=== PATIENT | male | born 1960 | race Caucasian/White ===

== ENCOUNTER 2017-03-28 03:57 | Emergency (ER) | payer OTHER ==
[~2017-03-28] VITALS: Ht 193 cm; Wt 140.6 kg
[~2017-03-28 03:57] MED LIST: AMLODIPINE BESY10 MG PO; ASPIRIN81 MG PO; ATORVASTATIN CA10 MG PO; DULOXETINE HCL60 MG PO; LISINOPRIL-HCT1 EACH PO; NORCO 5-325 TA1 EACH PO; PERCOCET 5-3251 EACH PO
[2017-03-28] MEDS ORDERED: PERCOCET 5-3251 EACH PO (06:33)
[2017-03-28] MEDS ORDERED: FLOMAX0.4 MG PO (06:33)
[2017-03-28] MEDS ORDERED: NAPROSYN500 MG PO (06:33)
== END 2017-03-28 07:09 | disposition home or self-care (01) ==
LOC: ED 03:57
DX: N20.2 Calculus of kidney with calculus of ureter (principal); N28.89 Other specified disorders of kidney and ureter; I10 Essential (primary) hypertension; E78.00 Pure hypercholesterolemia, unspecified; Z87.891 Personal history of nicotine dependence; Z79.899 Other long term (current) drug therapy; Z79.82 Long term (current) use of aspirin
CPT/HCPCS: 74176; 74177; 80053; 81001; 85025; 96374; 96375; 99284; J1885; J2405; Q9967

== ENCOUNTER 2017-04-16 05:40 | Day surgery (SDC) | payer OTHER ==
[~2017-04-16] VITALS: Ht 193 cm; Wt 145.2 kg
[~2017-04-16 05:40] MED LIST changes: +FLOMAX0.4 MG PO; +NAPROSYN500 MG PO
--- NOTE | 2017-04-16 08:44 | NUR ---
04/16/17 0844 Jessi Mclaughlin 0840 - PT ARRIVED TO PACU. AWAKE AND TALKING, MAINTAINING OWN AIRWAY. PT DENIES PAIN AND NAUSEA.
[2017-04-16] MEDS ORDERED: NORCO 7.5-3251 EACH PO (10:01)
[2017-04-16] MEDS ORDERED: BACTRIM DS TAB1 EACH PO (10:02)
--- NOTE | 2017-04-16 11:32 | NUR ---
UP TO BATHROOM WITH ONE PERSON ASSIST. VOIDED LG AMOUNT OF RED COLORED URINE. C/O R GROIN PAIN. CUSSING AND YELLING IN BATHROOM. BACK TO ROOM WITH 2 PERSON ASSIST. REPOSITIONED IN BED. CONTINUES TO C/O R GROIN PAIN 07/01 AND R FLANK PAIN /.
--- NOTE | 2017-04-16 15:38 | NUR ---
LE [address] SCAN. TO XRAY VIA STRETCHER. 1200 BACK IN DEPT. PAIN DOWN TO 11/29. SISTER AT BEDSIDE.
--- NOTE | 2017-04-16 15:39 | NUR ---
LE 1300 C/O INCREASED PAIN AND WANTING PAIN PILL BEFORE DISCHARGE. OXYCODONE 10MG PO GIVEN. 1330 PAIN BETTER PER PT. GETTING DRESSED. 1340 DC INSTRUCTIONS GIVEN TO PT/SISTER. LEFT VIA W/C. RX FOR ABX AND STOOL SOFTENER CALLED INTO [facility] PER PT REQUEST.
--- NOTE | 2017-04-17 14:29 | OR ---
[facility] [address], [place] [address] Signed DATE OF PROCEDURE: 04/16/17 PREOPERATIVE DIAGNOSES Severe onset of right-sided flank pain with no previous history of nephrolithiasis. Proximal right ureteral calculi x2, each measuring approximately 2-3 mm in size. Abnormal finding on recent CT scan of proximal right ureteral enlargement/filling defect. Approximately 1 cm solid right renal mass, suspicious for malignancy. POSTOPERATIVE DIAGNOSES Severe onset of right-sided flank pain with no previous history of nephrolithiasis. Proximal right ureteral calculi x2, each measuring approximately 2-3 mm in size. Abnormal finding on recent CT scan of proximal right ureteral enlargement/filling defect. Approximately 1 cm solid right renal mass, suspicious for malignancy. Hi story of right ureterolithiasis, status post successful trial of passage of both proximal right ureteral calculi. Residual right renal calculi. NAMES OF PROCEDURES Diagnostic cystoscopy with right retrograde pyelogram. Right diagnostic nephroureteroscopy with attempted extraction of right renal calculus. Right ureteral stent insertion. SURGEON: Carmencita Bañuelos MD. ANESTHESIA: General. ESTIMATED BLOOD LOSS: Minimal. COMPLICATIONS During attempted extraction of a 3-4 mm right renal calculus, visualization of the stone was lost during extraction, which resulted in a small perforation of the medial aspect of the proximal right ureter. This was discovered immediately on repeat right retrograde pyelogram. I was also able to visualize on ureteroscopy an area of periureteral fat, which was immediately diagnostic of a right ureteral perforation. At that time, I immediately aborted my attempts to extract the stone and instead found the uninvolved portion of the ureter and made my way cranially into the right renal pelvis where a Sensor wire was then placed successfully. Over the wire, I passed a right ureteral stent without difficulty. SPECIMENS: None. DRAINS Electronically Signed By: CARMENCITA BAÑULEOS MD 04/17/17 1429 PATIENT NAME: KAROL VALLECILLO OPERATIVE REPORT DATE OF : 62 PHYSICIAN: CARMENCITA BAÑUELOS MD REPORT #: [id number] REPORT IS CONFIDENTIAL AND NOT TO BE RELEASED WITHOUT AUTHORIZATION [facility] [address] [facility] [place] [address] Signed A 6 x variable length contour double-J ureteral stent was inserted in the right ureter under direct visualization without difficulty. OPERATIVE FINDINGS On cystoscopy, there was no evidence of any suspicious masses, lesions, or stones within the bladder. There was, however, evidence of diffuse grade 1-2 trabeculation of the bladder wall, which I believe is indicative of long-standing bladder outlet obstruction. Ureteroscopy revealed a moderately enlarged prostate with a relatively high bladder neck. There was no overt lateral lobe hypertrophy; however, I could appreciate a small median lobe. Right retrograde pyelogram revealed no evidence of any residual obstructing ureteral calculi within the right ureter. Right retrograde pyelogram did reveal a pocket of about 4-5 stones in the midpole of the right kidney, all measuring approximately a total of 1 cm in diameter. Right diagnostic ureteroscopy was performed and I did not visualize any ureteral calculi present within the ureter. I made my way into the kidney where nephroscopy was performed. Most of the kidney was free of stones except for a middle calyx, in which I noted approximately 4 stones measuring a total of 1 cm in diameter. I attempted to extract one of these stones with a Zero Tip basket on my way down from the kidney into the proximal ureter. I lost visualization due to older, more antiquated instrumentation. In that time, a small perforation was created in the medial aspect of the right ureter. This perforation was immediately discovered and any additional efforts to extract the stone were aborted. A 6 x variable length contour double-J ureteral stent was then inserted into the right ureter under direct visualization without difficulty. DESCRIPTION OF PROCEDURE After informed consent was obtained, the patient was taken back to the operating room. He was transferred from the [facility] to the operating room table where general anesthesia was induced. He was placed in the dorsal lithotomy position and his genitalia were prepped and draped in a standard sterile fashion. Using a 30-degree lens on a 23-Maori introducer, rigid cystoscope was inserted through the urethra in to his bladder under direct visualization. Panendoscopic views of the bladder were then obtained. Please see above findings. Attention was turned to the right ureteral orifice. A cone-tipped catheter was advanced to the level of the right ureteral orifice and a right retrograde pyelogram was performed, please see above findings. I then removed the cystoscope and advanced an extended length semi-rigid ureteroscope through the patient's urethra into his bladder without difficulty. I then advanced the scope i n to the right ureter and performed a right diagnostic ureteroscopy. Please see above findings. Once I was satisfied that there were not any stones present within the entire length of the ureter, I removed the rigid scope, leaving a Sensor wire behind within the right collecting system. Over the wire, I advanced a 13/15 ureteral access sheath into the right Electronically Signed By: CARMENCITA BAÑUELOS MD 04/17/17 1429 PATIENT NAME: KAROL VALLECILLO OPERATIVE REPORT DATE OF : 62 PHYSICIAN: CARMENCITA BAÑUELOS MD REPORT #: [id number] REPORT IS CONFIDENTIAL AND NOT TO BE RELEASED WITHOUT AUTHORIZATION [facility] [address], [place] [address] Signed collecting system under direct visualization without difficulty. I repeated a right retrograde pyelogram to confirm placement of the ureteral access sheath. I then advanced a flexible ureteroscope through the sheath and into the proximal right ureter and right kidney. A right diagnostic nephroscopy was then performed. Please see above findings. I located a small collection of stones in the mid pole of the right kidney. During my attempt to extract the 1st stone on my way out of the kidney and into the ureter, I lost visualization of this stone. I immediately stopped withdrawing the flexible ureteroscope; however, upon revisualization of the ureter, I noted a small perforation present on the medial aspect of the right ureter. This was noted via the presence of periureteral fat on ureteroscopy. I immediately aborted my stone extraction attempt and then focused on regaining access to the upper collecting system. I was able to successfully do so via ureteroscopy and made my way back up into the right kidney. I placed a Sensor wire into the right collecting system via the ureteroscope. The ureteroscope was then removed. Over the wire, a 6 x variable length contour double-J ureteral stent was inserted in the right collecting system under direct visualization without difficulty. Upon removal of the wire, an adequate proximal coil was seen within the right renal pelvis along with an adequate distal coil in the bladder. The patient's bladder was then drained and the cystoscope was removed. The procedure was then terminated. The patient tolerated the procedure well without any complications. He will now be transferred to the post anesthesia care unit in stable condition. DISPOSITION My plan is to discharge Mr. Vallecillo home later today in stable condition if he does not experience any severe right-sided flank pain or any evidence of significant urinoma. He will be discharged home today on Bactrim Double Strength for a total of 10 days along with Oxycodone 5, dispense #40, as needed for pain. He was given a higher amount of narcotics as he did experience some severe right-sided groin pain postoperatively. I obtained a noncontrast CT scan, which revealed the stone that I attempted to extract still present within the ureter and a double J ureteral stent in good position. There was a very small hematoma over the psoas muscle, which would explain the groin pain. There was no evidence of any significant fluid collection within the retroperitoneum. He was therefore deemed stable for discharge once his pain was under adequate control. He will be scheduled to return to clinic in approximately 3 weeks, at which time I will evaluate his urine as well as obtain a PSA and perform a digital rectal exam, given his strong family history of prostate cancer. In approximately 5-6 weeks, my plan is to take him back to the operating room where I will remove his stent and perform retrograde to ensure adequate healing of the ureter. I will then re-attempt stone extraction with hopefully with better instrumentation at that time. Electronically Signed By: CARMENCITA BAÑUELOS MD 04/17/17 1429 PATIENT NAME: KAROL VALLECILLO OPERATIVE REPORT DATE OF : 62 PHYSICIAN: CARMENCITA BAÑUELOS MD REPORT #: [id number] REPORT IS CONFIDENTIAL AND NOT TO BE RELEASED WITHOUT AUTHORIZATION [facility] [address] [place] [id number] Signed Carmencita Bañuelos MD AR/Modl /[id number] cc: Marck Kunh MD Electronically Signed By: CARMENCITA BAÑUELOS MD 04/17/17 1429 PATIENT NAME: KAROL VALLECILLO OPERATIVE REPORT DATE OF : 62 PHYSICIAN: CARMENCITA BAÑUELOS MD REPORT #: [id number] REPORT IS CONFIDENTIAL AND NOT TO BE RELEASED WITHOUT AUTHORIZATION
== END 2017-04-16 13:40 | disposition home or self-care (01) ==
LOC: DS 05:40 → OPS 05:40 → DS 06:45 → OPS 13:40
PROVIDERS: Urology
PROC: 0T768DZ Dilation of Right Ureter with Intraluminal Device, Via Natural or Artificial Opening Endoscopic (ICD-10-PCS; principal; 2017-04-16 06:45)
PROC: BT1DYZZ Fluoroscopy of Right Kidney, Ureter and Bladder using Other Contrast (ICD-10-PCS; 2017-04-16 06:45)
DX: N20.0 Calculus of kidney (principal); I10 Essential (primary) hypertension; E78.5 Hyperlipidemia, unspecified; Z79.82 Long term (current) use of aspirin; Z79.899 Other long term (current) drug therapy; Z98.890 Other specified postprocedural states; Z87.442 Personal history of urinary calculi
CPT/HCPCS: 00910; 74176; 74420; 74450; C2617; J0330; J0696; J1100; J1170; J1885; J2250; J2405; J2704; J3010; J7120; Q9967

== ENCOUNTER 2017-04-18 03:49 | Inpatient (IN) | payer OTHER ==
[~2017-04-18] VITALS: Ht 193 cm; Wt 141.8 kg
[~2017-04-18 03:49] MED LIST changes: +BACTRIM DS TAB1 EACH PO; +NORCO 7.5-3251 EACH PO
[2017-04-18] MEDS ORDERED: PERCOCET 5-3251 EACH PO (04:09)
[2017-04-18] MEDS ORDERED: OXYCODONE HCL5 MG PO (04:10)
[2017-04-18] MEDS ORDERED: BACTRIM DS TAB1 EACH PO (04:11)
--- NOTE | 2017-04-18 06:53 | NUR ---
56YR OLD MAN ADMITTED FROM ER VIA STRETCHER TO ROOM 114. PT IS ALERT, ORIENTED, ABLE TO STAND AND TRANSFER FROM STRETCHER TO BED WITH SBA. DENIES NAUSEA AT THIS TIME. RATES PAIN 4/10 AND COMFORTABLE AFTER RECIEVING PAIN MEDICATION IN ER. ORIENTED TO ROOM AND CALL LIGHT. DENEIS NEED TO VOID AND IMPORTANCE OF USING CALL LIGHT TO GET UP. ORDERS NOTED.
--- NOTE | 2017-04-18 07:13 | NUR ---
NS @ 125 INFUSING R HAND. PT IS SLEEPING SOUNDLY, O2 2 2L/NC SINCE RECIEVING PAIN MEDICATION. CALL LIGHT IN EASY REACH.
--- NOTE | 2017-04-18 07:30 | NUR ---
BEDSIDE REPORT RECEIVED FROM BIANKA FLORES. PT AWAKE AND ALERT IN BED, 2L O2 IN PLACE. PT STATING 1/10 PAIN AT THIS TIME. DENIES NAUSEA. PT ORDERING BREAKFAST. NO ADDITIONAL REQUESTS AT THIS TIME. CALL LIGHT IN REACH.
--- NOTE | 2017-04-18 08:23 | NUR ---
REPORT RECEIVED FROM BIANKA FLORES. PT MORE COMFORTABLE NOW. IN BED TALKING TO SISTER BIANKA CHANG AND ORDERING BREAKFAST. STATES HE FEELS LIKE HE CAN EAT FOR THE FIRST TIME SINCE SURGERY ON SUNDAY.
--- NOTE | 2017-04-18 08:29 | NUR ---
PATIENT SITTING UP IN BED EATING BREAKFAST. CALL BUTTON IN REACH. SISTER IN ROOM. NO OTHER NEEDS AT THIS TIME.
--- NOTE | 2017-04-18 09:55 | NUR ---
MORNING ASSESSMENT COMPLETE. PT STATING PAIN IS 1/10 AT THIS TIME. PTS LUNGS CLEAR THROUGHOUT. BOWEL TONES ACTIVE X 4. PT IS ALERT AND ORIENTED. VS STABLE WITH TEMPERATURE OF 99.1. WILL CONTINUE TO MONITOR. PT GIVEN CALL LIGHT AND PHONE.
--- NOTE | 2017-04-18 10:00 | NUR ---
PATIENT RESTING IN BED WITH EYES CLOSED. STATES THAT HE DOESN'T HAVE THE URG TO PEE RIGHT NOW AND WANTS TO SLEEP FOR A BIT. CALL BUTTON IN REACH NO OTHER NEEDS AT THIS TIME.
--- NOTE | 2017-04-18 12:10 | NUR ---
ASSUMED CARE OF PT, RECIEVED VERBAL REPORT FROM [facility] PT RESTING IN BED WITH EYES CLOSED. IV INFUSING WNL.
--- NOTE | 2017-04-18 12:26 | NUR ---
MED REC COMPLETE
--- NOTE | 2017-04-18 13:04 | NUR ---
PT SBA UP TO RESTROOM. PT HAS SEVERE PAIN WITH MOVEMENT AND URINATION. VOIDED UNMEASURED AMOUNT OF COLA COLORED URINE. PT AMB BACK TO BED, MEDICATED WITH IV DILAUDID AND PRN PYRIDIUM FOR REPORTS OF 5/10 LOW ABD/BLADDER PAIN. CALL LIGHT WITHIN REACH.
--- NOTE | 2017-04-18 14:09 | NUR ---
PATIENT RESTING OM BED WITH EYES CLOSED. REFUSES SHOWER OR BATH. REFUSED ORAL CARE. FRESH ICE WATER GIVEN. NO OTHER NEEDS AT THIS TIME.
--- NOTE | 2017-04-18 14:19 | NUR ---
PT RESTING IN BED WITH EYES CLOSED, RESPONDS TO VERBAL STIMULI. STATES PAIN HAS IMPROVED AT THIS TIME 09/29, DENIES NEEDS OR CONCERNS. CALL LIGHT WITHIN REACH.
--- NOTE | 2017-04-18 16:17 | NUR ---
PT SLEEPING SOUNDLY IN BED, EYES CLOSED, RESP EVEN AND UNLABORED.
--- NOTE | 2017-04-18 17:55 | NUR ---
PATIENT UP TO BATHROOM. MOANED IN PAIN WHILE USING THE URINAL. I.S. TEACHING FOR FEVER AND LOW O2 LEVEL OF 91%. LINENS REFRESHED. WASHED FACE AND HANDS. PATIENT STATES HE IS COLD. URINE TEA COLOR. RN NOTIFIED. NO OTHER NEEDS AT THIS TIME. CALL BUTTON IN REACH.
--- NOTE | 2017-04-18 18:00 | NUR ---
PT AMB TO RESTROOM WITH SBA WITH MANAGER FRONT. PAINFUL WHILE VOIDING, DARK URINE. AMB BACK TO BED. MEDICATED WITH TYLENOL FOR LOW GRADE FEVER. CALL LIGHT WITHIN REACH.
--- NOTE | 2017-04-18 19:25 | NUR ---
SHIFT REPORT RECIEVED. PATIENT RESTING IN BED, EYES CLOSED, SNORING HEARD. RR 16. CALL LIGHT IN REACH.
--- NOTE | 2017-04-18 21:59 | NUR ---
EVEING MEDS GIVEN PER ORDER. PATIENT REPORTS PAIN AT 3/10. PRN PAIN MEDS GIVEN. LUNG SOUNDS ARE CLEAR. BREATHING NONLABORED WHEN IN BED. RR INCREASED WITH PAIN, APPEARS TO BE DUE TO INCREASE IN PAIN WITH MOVEMENT. PATIENT HAS ACTIVE BOWEL SOUNDS AND STATES THAT HE IS NOT VERY HUNGRY WHILE HE ISN'T BEING ACTIVE. PATIENT WAS UP WITH 1PA TO THE BATHROOM. PAIN WAS INCREASED WITH URINATION. OUTPUT WAS DARK BROWN WITH SEDIMENT. PATIENT ASSISTED BACK TO BED. IVF INFUSING, SITE WNL. PATIENT PROVIDED WARM BLANKET PER REQUEST. CALL LIGHT IN REACH. NO FURTHER NEEDS AT THIS TIME.
--- NOTE | 2017-04-18 23:56 | NUR ---
PATIENT RESTING IN BED. EYES CLOSED. RR 16. CALL LIGHT IN REACH.
--- NOTE | 2017-04-19 01:45 | NUR ---
PATIENT RESTING, EYES CLOSED, RR 18. IFV INFUSING. CALL LIGHT IN REACH.
--- NOTE | 2017-04-19 02:45 | NUR ---
PATIENT CALLED FOR ASSISTANCE. REPORTED 7/10 PAIN. PRN PAIN MEDS GIVEN. WARM BLANKET PROVIDED. WILL REASSESS. CALL LIGHT IN REACH.
--- NOTE | 2017-04-19 02:54 | NUR ---
PATIENT RESTING IN BED. EYES CLOSED. RR 16.
--- NOTE | 2017-04-19 03:18 | NUR ---
PATIENT REPORTING 7/10 PAIN. PRN PAIN MEDS GIVEN. POSITIONED FOR COMFORT. ENCOURAGED PATIENT TO TRY TO RELAX. PATIENT APPEARS VERY ANXIOUS AND GRUNTS IN PAIN. WILL REASSESS.
--- NOTE | 2017-04-19 05:38 | NUR ---
PATIENT RESTED ON AND OFF THROUGHOUT SHIFT. PATIENT REQUIRED PRN PAIN MEDS X2. PATIENT HAS IVF INFUSING. URINE HAS BEEN DARK BROWN. PATIENT HAS SEVERE RIGHT FLANK AND SIDE PAIN THAT IS INCREASED WITH URINATION. PATIENT IS SBA. REGULAR DIET, POOR APPETITE. UNKNOWN LAST BM.
--- NOTE | 2017-04-19 06:47 | NUR ---
PATIENT REQUEST PRN PAIN MEDS WHICH WERE GIVEN TO HIM. THEN THE PATIENT AGREED TO GET UP AND TRY TO URINATE. OUTPUT IS QS, DARK DROWN, WITH SOME SMALL CLOTS. PATIENT EXPERIENCED SEVERE PAIN WITH URINATION. PATIENT BACK TO BED. NO FURTHER NEEDS. CALL LIGHT IN REACH.
--- NOTE | 2017-04-19 07:30 | NUR ---
BEDSIDE REPORT RECEIVED FROM BIANKA ROQUE. PT ASLEEP IN BED, BREATHING EQUALLY BILATERALLY. IVF INFUSING. WILL CONTINUE TO MONITOR.
--- NOTE | 2017-04-19 09:35 | NUR ---
PT OFF FLOOR WITH CT.
--- NOTE | 2017-04-19 10:12 | NUR ---
PATIENT BACK FROM CT. MORNING MEDS ADMINISTERED. PATIENT RATED HIS PAIN AT 1. PATIENT HAS A LOW GRADE TEMP OF 99.8. BLANKET REMOVED. WILL CONTINUE TO MONITOR.
--- NOTE | 2017-04-19 11:08 | NUR ---
PT ASSESSMENT COMPLETE. ASSISTED PT UP TO RESTROOM TO VOID. PT STATING 5/10 PAIN WITH AMBULATION, BUT THAT WHILE VOIDING PAIN IS "TOLERABLE", NO LONGER BURNING, PT NOW STATES JUST SOME PAIN IN THE PUBIC AREA AND IN RIGHT FLANK. PTS LUNGS CLEAR THROUGHOUT. ABDOMEN IS BLOATED AND TENDER IN RIGHT UPPER AND LOWER QUADRANT, BOWEL TONES ACTIVE X 4. PT DID NOT EAT BREAKFAST, STATES HE NORMALLY EATS ONE MEAL PER DAY DUE TO STOMACH DISCOMFORT AND BLOATING. CALL LIGHT GIVEN TO PT. PT HAS NO ADDITIONAL REQUESTS, WILL CONTINUE TO MONITOR.
--- NOTE | 2017-04-19 11:55 | NUR ---
IN PTS ROOM, PT COMPLAINING OF NAUSEA. PT GIVEN EMESIS BAG. ADMINISTERED PRN ZOFRAN IV. PT HAS CALL LIGHT IN REACH. WILL CONTINUE TO MONITOR.
--- NOTE | 2017-04-19 12:10 | NUR ---
REASSESS PT'S TEMPERATURE, 98.5 AT THIS TIME WITH ORAL TEMP. WILL CONTINUE TO MONITOR.
--- NOTE | 2017-04-19 12:41 | NUR ---
PT REPORTING PAIN OF 3/10 IN RIGHT FLANK, BLADDER AREA. ADMINISTERED 0.5 MG PRN DILAUDID. PT CONTINUES TO COMPLAIN OF NAUSEA, FEELS LIKE HE NEEDS TO THROW UP. PT HAS EMESIS BAG, ZOFRAN PRN WAS ADMINISTERED. WILL CONTINUE TO MONITOR. PT HAS CALL LIGHT IN REACH.
--- NOTE | 2017-04-19 12:55 | NUR ---
ASSISTED PT UP TO SIDE OF THE BED, COMPLAINING OF NAUSEA. PT AMBULATED TO RESTROOM, 325 ML TEA COLORED URINE OUT. PT BACK IN BED, IVF INFUSING AT 125 ML/HR. PT HAS CALL LIGHT.
--- NOTE | 2017-04-19 14:40 | NUR ---
PT DENIES NAUSEA AT THIS TIME. ADMINISTERED PRN AZO. PT STATES THAT HE THINKS THIS HAS HELPED WITH HIS PAIN. ADMINISTERED 0.5 MG DILAUDID PRN, PT STATING THAT PAIN IS 1/10, BUT WILL BE GETTING UP TO VOID SOON. PT GIVEN CALL LIGHT, WILL CONTINUE TO MONITOR.
--- NOTE | 2017-04-19 15:21 | NUR ---
ASSISTED PT UP TO RESTROOM. PT GROANING IN PAIN W URINATION, STATES THE BURNING PAIN IS BACK, IN LOWER RIGHT ABDOMEN. PT'S LUNGS CLEAR THROUHGOUT. ABDOMEN CONTINUES TO BE DISTENDED "BLOATED PER PT". BOWEL TONES ACTIVE X 4 QUADRANTS. ABDOMEN IS SOFT, NON-TENDER, BUT PT IS GUARDED DUE TO BLADDER PAIN. PT DENIES NAUSEA AT THIS TIME. PT NOW BACK TO BED, NO ADDITIONAL REQUESTS. CALL LIGHT WITH PT, WILL CONTINUE TO MONITOR.
--- NOTE | 2017-04-19 17:00 | NUR ---
PT STATING PAIN IS 1/10 AT THIS TIME, BUT REQUESTING SHOWER. ASMINISTERED 0.5 MG DILAUDID FOR PROPHYLACTIC PAIN MANAGEMENT FOR PT. ASSISTED PT TO SALINE LOCK IV SITE AND COVER IV SITES WITH PLASTIC. INSTRUCTED PT TO PULL CALL LIGHT WHEN SHOWER COMPLETE.
--- NOTE | 2017-04-19 17:03 | NUR ---
PT WAITING FOR SHOWER, IV ANTIBIOTICS HAVE ABOUT AN HOUR AND HALF, MADE PLAN WITH PT TO SHOWER WHEN IVF INFUSION COMPLETE. SUPPLIES AT BEDSIDE. CALL LIGHT IN REACH.
--- NOTE | 2017-04-19 17:13 | NUR ---
DR. BAÑUELOS IN PT ROOM DISCUSSING POTENTIAL TRANSFER TO ANOTHER UROLOGIST, PLAN TO FOLLOW-UP WITH PT IN MORNING. PT'S QUESTIONS ANSWERED. PT HAS CALL LIGHT IN REACH. IVF RATE SLOWED TO 75 ML/HR. WILL CONTINUE TO MONITOR.
--- NOTE | 2017-04-19 18:10 | NUR ---
PT HAS BEEN AFEBRILE THROUGHOUT SHIFT. HAS HAD SIGNIFICANT PAIN W URINATION AND AMBULATION IN RIGHT FLANK, GROIN, AND BLADDER. DILAUDID PRN PAIN MED ADMINISTERED AVAILABLE. PT REPORTED NAUSEA THIS MORNING, DENIES NAUSEA LATER IN SHIFT. DR. BAÑUELOS IN TO SEE PT THIS AFTERNOON, WILL FOLLOW UP WITH ANOTHER UROLOGIST FOR POTENTIAL TRANSFER OF PT TOMORROW SHE IS GOING ON VACATION. CT REVEALED FLUID POCKET THAT MAY NEED PERCUTANEOUS DRAIN FROM FACILITY THAT IS CAPABLE IF FLUID LEAKAGE WORSENS.
--- NOTE | 2017-04-19 18:59 | NUR ---
SALINE LOCKED IV SITES, WRAPPED IN PLASTIC FOR PT TO TAKE SHOWER. PT ORIENTED TO SHOWER, GIVEN TOWELS, SOAP, EDUCATED TO PULL CALL LIGHT WHEN FINISHED. PT ADMINISTERED PRN 0.5 MG DILAUDID FOR PROPHYLACTIC PAIN MANAGEMENT WITH AMBULATION. PT UP TO SHOWER, WILL CONTINUE TO MONITOR.
--- NOTE | 2017-04-19 19:10 | NUR ---
SHIFT REPORT RECIEVED. PATINET GETTING OUT OF SHOWER. ASSISTED BACK TO BED. PATIENT APPEARS STEADY ON HIS FEET AND REPORT PAIN IS TOLERABLE AT THE MOMENT. PATIENT REQUESTED WARM BLANKET WHICH WAS GIVEN TO HIM. NO FURTHER NEEDS AT THIS TIME. CALL LIGHT IN REACH.
--- NOTE | 2017-04-19 19:39 | NUR ---
IV IN LEFT HAND PULLED FROM VEIN DURING PT SHOWER. D/C'D IV WNL. NS INFUSING IN RIGHT FOREARM, LINE PATENT, FLUSHES WELL. PT GIVEN BLANKETS, LIGHTS TURNED OFF. PT AWAKE IN BED WATCHING TV. CALL LIGHT IN REACH.
--- NOTE | 2017-04-19 19:50 | NUR ---
PATIENT IS RESTING IN BED. IVF INFUSING. LUNG SOUNDS CLEAR. ABD ROUND, NONTENDER. PUBIC AREA IS TENDER AND PATIENT REPORTS PAIN IN RIGHT SIDE AND GROIN AREA, RATED AT 3/10. PATIENT STATES URINATIONS IS STILL VERY PAINFUL, RATED AT 7/10. SCDS ARE IN PLACE. PATIENT HAS DIMINISHED APPETITE, BUT DENIES NAUSEA. BOWEL SOUNDS ARE ACTIVE. PATIENT DENIES NEEDS AT THIS TIME. CALL LIGHT IN REACH.
--- NOTE | 2017-04-19 20:50 | NUR ---
PRN PAIN MEDS GIVEN PER PATIENT REQUEST. PAIN IN RIGHT SIDE AT 3/10 BUT PATIENT STATES THE PAIN IS "GROWING" OF NOW.
--- NOTE | 2017-04-19 22:34 | NUR ---
IV ABX GIVEN PER ORDER. PATIENT REQUEST TO HAVE PRN PAIN MEDS AT THE NEXT AVAILABLE TIME. WILL REASSESS AT THAT TIME. STATES PAIN IS 1/10 AT THIS TIME. PATIENT RESTING IN BED. NO NEEDS AT THIS TIME. CALL LIGHT IN REACH.
--- NOTE | 2017-04-20 00:02 | NUR ---
PRN PAIN MEDS GIVEN PER PATIENT REQUEST. PATIENT STATES HE IS UNABLE TO SLEEP DUE TO DISCOMFORT. RATED PAIN AT 3/10.
--- NOTE | 2017-04-20 01:32 | NUR ---
PATIENT RESTING. EYES CLOSED. RR 18.
--- NOTE | 2017-04-20 04:30 | NUR ---
PATIENT RESTING. EYES CLOSED. RR18.
--- NOTE | 2017-04-20 05:45 | NUR ---
PT CALLED TO REQUEST PAIN MEDICATION FOR 4/10 PAIN AFTER VOIDING. 0.5MG IV DILAUDID ADMINISTERED AT THIS TIME. PT DENIES FURTHER REQUESTS.
--- NOTE | 2017-04-20 05:54 | NUR ---
PATIENT SLEPT WELL THROUGHOUT NIGHT. HAS INCREASED PAIN WITH URINATION. PRN PAIN MEDS GIVEN X4. PAIN IS IN RIGHT SIDE/FLANK AND GROIN AREA. INCREASED WITH MOVEMENT AND TENDER TO PALPITATION. PATIENT IS SBA WITH AMBULATION. AAOX3. IVF INFUSING. SCDS.
--- NOTE | 2017-04-20 07:40 | NUR ---
PT AWAKE AND ALERT IN BED. DOES NOT APPEAR TO BE IN ANY DISTRESS. BEDSIDE REPORT RECEIVED FROM JUDE CARLTON. DR BAÑUELOS IN TO SEE PT AND REVIEW CHART. DR BAÑUELOS IS CALLING ESTEFANY ALLISON MD TO SEE ABOUT TRANSFERRING PT. WILL WAIT FOR ORDERS.
--- NOTE | 2017-04-20 08:25 | NUR ---
PT IS SITTING UP IN CHAIR WITH CALL LIGHT IN REACH. PT DID NOT NEED ANYTHING AT THE MOMENT
--- NOTE | 2017-04-20 10:50 | NUR ---
PT IS SITTING UP IN BED WITH CALLLIGHT IN REACH. PT DID NOT EAT BREAKFAST BUT DID HAVE AN ENSURE. PT DID NOT WANT TO SHOWER BUT DID WASH FACE AND HANDS WITH WARM WASH CLOTH. PT ALSO BRUSHED HIS TEETH. PT DID NOT NEED ANYTHING ELSE
--- NOTE | 2017-04-20 13:19 | NUR ---
PT RESTING IN BED BETWEEN AMBULATING WITH NURSE IN HALLS. PAINFUL WITH URINATION. DR BAÑUELOS RE-ASSESSED PT. WILL AWAIT ORDERS FOR DISCHARGE.
[2017-04-20] MEDS ORDERED: OXYCODONE HCL10 MG PO (13:24)
[2017-04-20] MEDS ORDERED: SENNA-TIME S T1 EACH PO (13:24)
[2017-04-20] MEDS ORDERED: AUGMENTIN 875-1 EACH PO (13:27)
--- NOTE | 2017-04-20 14:12 | NUR ---
PT WALKING IN [place], SEEMED TO REALLY ENJOY GETTING OUT OF BED AND WALKING WITH CANE. FRIENDLY STOPPED TO VISIT WITH ME. INQUIRED ABOUT MY DAY. EXTENDED A BLESSING HE CONTINUED TO WALK AND GIVE ENCOURAGEMENT TO AN OLDER PT WALKING WITH A WALKER HE MET IN THE HALLWAY.
== END 2017-04-20 15:01 | disposition home or self-care (01) | DRG 694 ==
LOC: ED 03:49 → MS 06:38
PROVIDERS: ADMIT Urology
DX: N23 Unspecified renal colic (principal); R50.9 Fever, unspecified; D72.829 Elevated white blood cell count, unspecified; I10 Essential (primary) hypertension; D41.01 Neoplasm of uncertain behavior of right kidney; Z87.442 Personal history of urinary calculi
CPT/HCPCS: 36415; 74176; 74177; 80048; 80053; 81001; 83605; 85025; 87040; 87088; 96374; 96375; 99285; 99406; J0696; J1170; J1885; J2405; J2543; J7030; Q9967

== ENCOUNTER 2017-12-24 16:55 | Emergency (ER) | payer OTHER ==
[~2017-12-24] VITALS: Ht 193 cm; Wt 141.8 kg
[~2017-12-24 16:55] MED LIST changes: +AUGMENTIN 875-1 EACH PO; +OXYCODONE HCL10 MG PO; +OXYCODONE HCL5 MG PO; +SENNA-TIME S T1 EACH PO
--- NOTE | 2017-12-24 21:11 | EKG ---
[facility] [address] [facility] [place] [address] Signed Sinus rhythm with premature atrial complexes Nonspecific intraventricular conduction delay Borderline ECG When compared with ECG of 13-APR-2017 09:33, premature atrial complexes are now present Confirmed by JAMES WELLS MD ([id number]) on 12/24/2017 9:11:43 PM Electronically Signed By: JAMES WELLS MD 12/24/17 2111 PATIENT NAME: KAROL GORDON Electrocardiogram DATE OF : 62 PHYSICIAN: JAMES WELLS MD REPORT #: [id number] REPORT IS CONFIDENTIAL AND NOT TO BE RELEASED WITHOUT AUTHORIZATION
== END 2017-12-24 18:45 | disposition home or self-care (01) ==
LOC: ED 16:55
DX: R07.89 Other chest pain (principal); I10 Essential (primary) hypertension; F17.200 Nicotine dependence, unspecified, uncomplicated; Z79.899 Other long term (current) drug therapy
CPT/HCPCS: 71046; 80053; 84484; 85025; 85379; 93005; 93010; 99284

== ENCOUNTER 2023-04-18 05:55 | Day surgery (SDC) | payer OTHER ==
[~2023-04-18] VITALS: Ht 193 cm; Wt 145.4 kg
[~2023-04-18 05:55] MED LIST changes: +IBUPROFEN IB200 MG PO
[2023-04-18 06:06] VITALS: BP 145/80
--- NOTE | 2023-04-18 07:32 | NUR ---
Pt in good spirits. Consented to prayer. Prayed for successful procedure and gannon recovery.
--- NOTE | 2023-04-18 08:57 | NUR ---
[facility] WIDE AWAKE C/O ABD PAIN. ABD FIRM AND DISTENTED. 0820 PT MOVING ALL OVER IN BED AND MOANING LOUDLY R/T ABD PAIN. 0825 SITTING AT SIDE OF BED TRYING TO PASS GAS. 0830 NEW ORDERS RECEIVED FROM 0836 BACK IN BED LAYING ON L SIDE. DULCOLAX SUPPOSITORY PLACED. 0845 PT STARTING TO PASS LITTLE BITS OF GAS. 0855 PT PASSED LG AMOUNT OF GAS. ABD FIRM, BUT NOT DISTENDED.
[2023-04-18 09:01] VITALS: BP 142/88
--- NOTE | 2023-04-18 09:26 | OR ---
[facility] [address] [place], [place] [address] Signed DATE OF OPERATION: 04/18/2023 SURGEON: Basim Elena MD PREOPERATIVE DIAGNOSES: 1. Mother with colon cancer, age 76. 2. Cologuard test positive in February 2023. POSTOPERATIVE DIAGNOSES: 1. Xamnndo-cl-kharofdh internal hemorrhoids. 2. A 4 mm polyps x3 at 8 cm (rectum). 3. An 8 mm pedunculated polyp at 18 cm (rectum, snare). 4. A 5 mm lipoma at proximal right colon. 5. A 4 mm polyp at proximal right colon. 6. A 6 mm polyp at 85 cm in distal transverse colon/left colon. 7. A 4 mm polyp at 50 cm in left colon. 8. A 5 mm polyp at 30 cm in sigmoid colon. 9. A 5 mm polyp at 5 cm in rectum. PROCEDURE: Colonoscopy with snare polypectomy and hot biopsy. ESTIMATED BLOOD LOSS: None. INDICATIONS: Karol is a 62-year-old gentleman asked to see me for a followup colonoscopy. There is some discrepancy about his prior colonoscopy. In the chart it mentions Dr. Faizan Garcia in 2002 at the age of 43. Karol cannot remember that. He believes it was Dr. Ramos and around age 51 in 2011. He thinks that was negative. Currently, he has no lower GI complaints. He did have a positive Cologuard test back in February of this year. He has never seen any blood in his own stool. He knows his mother was diagnosed with colon cancer at age 76 and from the cancer at about age 79. In the office, I gave Андрей pamphlet on colonoscopy. We reviewed the nature of the test. There is risk including, but not limited to gas bloating, crampy abdominal pain, bleeding, perforation requiring surgery, and missed diagnosis. We also reviewed the need for monitored anesthesia care given his body habitus along with his daily use of alcohol. He had expressed understanding and wished to proceed. DESCRIPTION OF PROCEDURE: Electronically Signed By: BASIM ELENA MD 04/18/23 0926 PATIENT NAME: KAROL GORDON OPERATIVE REPORT DATE OF : 62 REPORT #: [id number] PHYSICIAN: BASIM ELENA MD PCP: AUGIE UGALDE MD REPORT IS CONFIDENTIAL AND NOT TO BE RELEASED WITHOUT AUTHORIZATION [facility] [address] [place] [id number] Signed Karol was taken into our endoscopy suite and placed in the left lateral decubitus position. He was given monitored anesthesia care with IV propofol per our nurse assembly press operator. A digital rectal exam was performed. He is a large man. I could not reach the prostate gland. No external hemorrhoids. Good sphincter tone. No masses. The adult colonoscope was introduced and advanced under direct visualization of the camera. It took some extra sedation and abdominal compression or get the scope around to the cecum itself. His prep was good. We could easily see the appendiceal orifice and ileocecal valve. The scope was then slowly withdrawn. We took pictures throughout for photodocumentation. We removed the above lipoma and polyps with the help of hot biopsy forceps. There was no diverticulosis. In the top of his rectum was an 8 mm pedunculated polyp, which we divided at the base with the snare and suctioned it onto the scope. When it was brought out, placed in the container. Upon retroflexion of scope, we can see that he does have [id number] internal hemorrhoids. After this, the gas was suctioned out. The colonoscope removed. Karol tolerated the procedure quite well. RECOMMENDATIONS: I will see Karol back in my office in 7 to 14 days to review his results. He might consider a short interval colonoscopy in 1-3 years. On this occasion, he seemed to do fine with a routine bowel prep. Basim Elena MD ALB/MODL /[id number] cc: MD Augie Blackburn MD Patient Chart Copies: BASIM ELENA MD Electronically Signed By: BASIM ELENA MD 04/18/23 0926 PATIENT NAME: KAROL GORDON OPERATIVE REPORT DATE OF : 62 REPORT #: [id number] PHYSICIAN: BASIM ELENA MD PCP: AUGIE UGALDE MD REPORT IS CONFIDENTIAL AND NOT TO BE RELEASED WITHOUT AUTHORIZATION [facility] [address] [facility] [place], [place] [address] Signed AUGIE UGALDE MD ~ Electronically Signed By: BASIM ELENA MD 04/18/23 0926 PATIENT NAME: KAROL GORDON OPERATIVE REPORT DATE OF : 62 REPORT #: [id number] PHYSICIAN: BASIM ELENA MD PCP: AUGIE UGALDE MD REPORT IS CONFIDENTIAL AND NOT TO BE RELEASED WITHOUT AUTHORIZATION
--- NOTE | 2023-04-19 05:44 | EKG ---
[facility] [address] [facility] [place] [address] Signed Sinus rhythm with premature atrial complexes Nonspecific intraventricular conduction delay Borderline ECG When compared with ECG of 24-DEC-2017 17:05, No significant change was found Confirmed by IAN ENCISO MD ([id number]) on 04/19/2023 5:44:11 AM Electronically Signed By: IAN ENCISO 04/19/23 0544 PATIENT NAME: KAROL GORDON Electrocardiogram DATE OF : 62 PHYSICIAN: IAN ENCISO REPORT #: [id number] REPORT IS CONFIDENTIAL AND NOT TO BE RELEASED WITHOUT AUTHORIZATION
--- NOTE | 2023-04-20 13:04 | PATH ---
[facility] [address] [place], [place] [address] Signed SPECIMEN(S): A RECTAL POLYPS AT 8 CM SPECIMEN(S): B RECTAL POLYP AT 18 CM SPECIMEN(S): C ASCENDING/RIGHT PROXIMAL COLON SPECIMEN(S): D ASCENDING/RIGHT PROXIMAL COLON SPECIMEN(S): E COLON POLYP AT 85 CM SPECIMEN(S): F DESCENDING/LEFT COLON POLYP AT 50 CM SPECIMEN(S): G DISTAL SIGMOID POLYP AT 30 CM SPECIMEN(S): H DISTAL RECTAL POLYP AT 5 CM SPECIMEN SOURCE: A. RECTAL POLYPS AT 8 CM B. RECTAL POLYP AT 18 CM C. ASCENDING/RIGHT PROXIMAL COLON D. ASCENDING/RIGHT PROXIMAL COLON E. COLON POLYP AT 85 CM F. DESCENDING/LEFT COLON POLYP AT 50 CM G. DISTAL SIGMOID POLYP AT 30 CM H. DISTAL RECTAL POLYP AT 5 CM CLINICAL HISTORY: Colonoscopy. Positive Cologuard, family history of cancer. Polyps, internal hemorrhoids. FINAL PATHOLOGIC DIAGNOSIS: A. Rectal polyps at 8 cm, biopsies: - Hyperplastic polyp fragments. B. Rectal polyp at 18 cm, polypectomy: - Tubular adenoma. C. Ascending/right colon, biopsies: - Fragments of hyperplastic colonic mucosa. - Negative for features of sessile serrated lesion. D. Ascending/right proximal colon, biopsy: - Tubular adenoma. E. Colon polyp at 85 cm, biopsies: - Hyperplastic polyp. F. Descending/left colon polyp at 50 cm, biopsy: - Hyperplastic polyp. G. Distal sigmoid polyp at 30 cm, biopsy: - Tubular adenoma. H. Distal rectal polyp at 5 cm, biopsy: - Tubular adenoma. PATIENT NAME: KAROL VALLECILLO PATHOLOGY DATE OF : 62 REPORT #: [id number] PHYSICIAN: PRACHI PATHOLOGY PCP: JOEL UGALDE MD REPORT IS CONFIDENTIAL AND NOT TO BE RELEASED WITHOUT AUTHORIZATION [facility] [address] [place], [place] [address] Signed AMB MICROSCOPIC EXAMINATION: Histologic sections of all submitted blocks are examined by light microscopy. These findings, together with the gross examination, support the pathologic diagnosis. AMB GROSS DESCRIPTION: A. The specimen, labeled and designated "Kristofer Vallecillo, colon, rectum polypectomy at 8 cm x 2," is received in formalin and consists of 2 arriaga soft tissue fragments measuring 0.3 x 0.5 cm in greatest dimension, specimens are submitted entirely in (A1). B. The specimen, labeled and designated "Kristofer Vallecillo, colon, rectum polypectomy at 18 cm," is received in formalin and consists of 1 arriaga-pink firm polypoid tissue measuring 1.1 x 1.0 x 0.7 cm. The resection margin is inked [place] green, the specimen is serially sectioned and submitted entirely in (B1). C. The specimen, labeled and designated "Kristofer Vallecillo, colon, ascending/right biopsy proximal lipoma," is received in formalin and consists of 1 arriaga soft tissue fragment measuring 0.3 x 0.7 cm, specimen submitted entirely in (C1). D. The specimen, labeled and designated "Kristofer Vallecillo, colon, ascending/right proximal polypectomy," is received in formalin and consists of 1 arriaga soft tissue fragment measuring 0.2 x 0.2 cm, specimen is submitted entirely in (D1). E. The specimen, labeled and designated "Kristofer Vallecillo, colon (NOS) polypectomy at 85 cm," is received in formalin and consists of 3 arriaga-brown soft tissue fragments measuring 0.4 x 0.4 cm in greatest dimension, all specimens are submitted entirely in (E1). F. The specimen, labeled and designated "Kristofer Vallecillo, colon, descending/left polypectomy at 50 cm," is received in formalin and consists of 1 arriaga soft tissue fragment measuring 0.2 x 0.2 cm, specimen is submitted entirely in (F1). G. The specimen, labeled and designated "Kristofer Vallecillo, colon, distal sigmoid polypectomy at 30 cm," is received in formalin and consists of 1 arriaga soft tissue fragment measuring 0.4 x 0.4 cm, specimen is submitted entirely in (G1). H. The specimen, labeled and designated "Kristofer Vallecillo, colon, distal rectum polypectomy at 5 cm," is received in formalin and consists of 1 arriaga soft tissue fragment measuring 0.2 x 0.3 cm in greatest PATIENT NAME: KAROL VALLECILLO PATHOLOGY DATE OF : 62 REPORT #: [id number] PHYSICIAN: PRACHI PATHOLOGY PCP: JOEL UGALDE MD REPORT IS CONFIDENTIAL AND NOT TO BE RELEASED WITHOUT AUTHORIZATION [facility] [address] [place], [place] [address] Signed dimension, specimen is submitted entirely in (H1). MMA (under the direct supervision of a pathologist) The Gross Description was prepared using a voice recognition system. The report was reviewed for accuracy; however, sound-alike word errors, addition and/or deletions may occur. If there is any question about this report, please contact Client Services. ADDITIONAL NOTES: Immunohistochemical and/or in situ hybridization studies if performed in this case included appropriate positive controls that reacted as expected. This test was developed and its performance characteristics determined by [facility]. It has not been cleared or approved by the U.S. Food and Drug Administration. The FDA has determined that such clearance or approval is not necessary. This test is used for clinical purposes. It should not be regarded as investigational or for research. [facility] is certified under the Clinical Laboratory Improvement Amendments of 1988 (CLIA) as qualified to perform high complexity clinical laboratory testing. PERFORMING LABORATORY: Technical component was performed by [facility], [address] [place] [address] (CLIA# [id number]). Professional interpretation was performed by [facility] - [address] [id number] Diagnostician: Mine Herrera MD Pathologist Electronically Signed 04/20/2023 Copies: ~ PATIENT NAME: KAROL VALLECILLO PATHOLOGY DATE OF : 62 REPORT #: [id number] PHYSICIAN: PRACHI CABEZAS PCP: JOEL UGALDE MD REPORT IS CONFIDENTIAL AND NOT TO BE RELEASED WITHOUT AUTHORIZATION
== END 2023-04-18 09:17 | disposition home or self-care (01) ==
LOC: DS 05:55 → OPS 05:55 → DS 08:45 → OPS 08:45
PROVIDERS: ATTEND Colon & Rectal Surgery
PROC: 0DBN8ZZ Excision of Sigmoid Colon, Via Natural or Artificial Opening Endoscopic (ICD-10-PCS; 2023-04-18)
PROC: 0DBP8ZZ Excision of Rectum, Via Natural or Artificial Opening Endoscopic (ICD-10-PCS; 2023-04-18)
PROC: 0DBM8ZZ Excision of Descending Colon, Via Natural or Artificial Opening Endoscopic (ICD-10-PCS; 2023-04-18)
PROC: 0DBK8ZZ Excision of Ascending Colon, Via Natural or Artificial Opening Endoscopic (ICD-10-PCS; principal; 2023-04-18 07:30)
DX: D12.2 Benign neoplasm of ascending colon (principal); D12.5 Benign neoplasm of sigmoid colon; K63.5 Polyp of colon; Z80.0 Family history of malignant neoplasm of digestive organs; F10.99 Alcohol use, unspecified with unspecified alcohol-induced disorder; I10 Essential (primary) hypertension; E78.2 Mixed hyperlipidemia; E66.9 Obesity, unspecified; F17.200 Nicotine dependence, unspecified, uncomplicated; N40.0 Benign prostatic hyperplasia without lower urinary tract symptoms; Z68.39 Body mass index [BMI] 39.0-39.9, adult; D12.8 Benign neoplasm of rectum
CPT/HCPCS: 00813; 93005; 93010; J2001; J2704; J3010; J7121